=== PATIENT | female | born 1970 | race Hispanic/Latino ===

== ENCOUNTER 2019-09-21 12:07 | Inpatient (IN) | payer BC ==
[2019-09-21] MEDS ORDERED: Piperacillin/Tazobactam 4.5 GM VIAL ONE (12:56)
[2019-09-21 13:01] LABS: Hemoglobin 13.7 g/dL (12.0-16.0); Mean Corpuscular HGB CONC 33.6 g/dL (32.0-36.0); Mean Corpuscular Hemoglobin 31.7 pg (27.0-31.0); Mean Corpuscular Volume 94.3 fL (78.0-98.0); Mean Platelet Volume 9.7 fL (7.4-10.4); Platelet Count 214 thou/uL (130-400); RBC Distribution Width 12.4 % (11.5-14.5); Red Blood Cell (RBC) Count 4.33 mill/uL (4.20-5.40); White Blood Cell (WBC) Count 22.3 thou/uL (4.8-10.8)
[2019-09-21 13:14] LABS: Band 24 % (5-11); Lymphocytes 8 % (21-51); MDiff Complete? YES; Monocytes 1 % (0-10); Neutrophil 67 % (42-75); Platelet Morphology Comment Appears Adequate; RBC Morphology Normal
[2019-09-21 13:20] LABS: ALT (SGPT) 17 U/L (8-55); AST (SGOT) 14 U/L (5-34); Albumin 4.3 g/dL (3.5-5.0); Alkaline Phosphatase 100 U/L (40-110); Anion Gap 15 mmol/L (10-20); BUN (Urea Nitrogen) 14 mg/dL (7.0-18.7); Calc. Creatinine Clearance 0 mL/min (70-130); Calcium 9.4 mg/dL (7.8-10.44); Carbon Dioxide 24 mmol/L (22-29); Chloride 100 mmol/L (98-107); Estimated GFR-MDRD 70; Globulin 4.1 g/dL (2.4-3.5); Glucose 115 mg/dL (70-105); Lipase 10 U/L (8-78); Potassium 3.6 mmol/L (3.5-5.1); Protein, Total 8.4 g/dL (6.0-8.3); Sodium 135 mmol/L (136-145)
--- NOTE | 2019-09-21 13:42 | RAD ---
PORTABLE CHEST: Date: 09/21/2019 PROVIDED CLINICAL HISTORY: Abdominal pain. FINDINGS: Cardiac and mediastinal silhouette is within normal limits. No focal consolidation, pleural fluid, or pneumothorax apparent. IMPRESSION: No evidence for an acute cardiopulmonary process. POS: CARLOS
--- NOTE | 2019-09-21 13:46 | CT ---
CT ABDOMEN AND PELVIS: Date: 09/21/2019 PROVIDED CLINICAL HISTORY: Lower abdominal pain. FINDINGS: The visualized lung bases are free of significant opacity. The solid abdominal organs demonstrate a normal CT appearance. There is a prominently heterogeneous a ppearance to the uterus and both adnexa, with surrounding inflammatory fat stranding. There is a 2.7 cm fluid collection present within the pelvic cul-de-sac right of midline. There is a 1.9 cm fluid co llection immediately adjacent to the fundus of the uterus posteriorly left of midline. There is no bowel dilatation, additional inflammatory fat stranding, or free air apparent. The append ix appears unremarkable. The osseous structures demonstrate no concerning lytic or blastic lesions. IMPRESSION: Findings compatible with pelvic inflammatory disease with fluid collections in the pelvic cul-de-sac and left adnexal region that may reflect abscesses. These do not appear to be percutaneously accessib le. POS: CARLOS
[2019-09-21] MEDS ORDERED: Iopamidol-370 76% 500 ML 1 ML ONE (14:13)
[2019-09-21] MEDS ORDERED: Acetaminophen 500 MG TAB ONE (15:01)
[2019-09-21 15:07] LABS: Bacteria/HPF None Seen HPF (None Seen); Bilirubin Negative (Negative); Blood, Urine 1+ (Negative); Clarity Clear (Clear); Glucose, Urine (Dipstick) Normal (Negative); Leukocyte Negative Leu/uL (Negative); Nitrite Negative (Negative); Protein, Urine (Dipstick) 30 mg/dL (Neg-Trace); Squamous Epithelial 0-3 HPF (0-3); Urobilinogen Normal mg/dL (Less than 2); WBC/HPF 0-3 HPF (0-3)
[2019-09-21] MEDS ORDERED: Bisacodyl 5 MG TAB PO PRN (15:31)
[2019-09-21] MEDS ORDERED: HYDROcodone/Acetaminophen 5/325 mg Tablet PO PRN (15:31)
[2019-09-21] MEDS ORDERED: Ondansetron ODT 4 MG TAB PO PRN (15:31)
[2019-09-21] MEDS ORDERED: Senokot S 8.6-50 MG TAB PO PRN (15:31)
--- NOTE | 2019-09-21 15:34 | ULT ---
TRANSABDOMINAL AND TRANSVAGINAL PELVIC ULTRASOUND: 09/21/19 HISTORY: Pelvic pain. FINDINGS/IMPRESSION: The uterus measures 12.5 x 5.6 x 5.6 cm without focal mass or endometrial fluid. The endometrium waqas ures 4 mm in thickness. The ovaries are not visualized. There is a small amount of free fluid in the posterior cul-de-sac. Ex am is limited due to bowel gas. Please see CT abdomen/pelvis report. POS: JANE
[2019-09-21] MEDS: cefOXitin Sodium/Dextrose,Iso 2 GM in Premix Bag 1 BAG IVPB SCH (18:47)
[2019-09-21] MEDS: Sodium Chloride 0.9% 1,000 ML IV SCH (18:47)
--- NOTE | 2019-09-21 21:51 | HP ---
CHIEF COMPLAINT: PID. HISTORY OF PRESENT ILLNESS: The patient is a 49-year-old female, who presented to the emergency room after being seen at an outside clinic for 1-day history of pelvic and abdominal pain and fever. Upon arrival, the patient had a CT performed of the pelvis demonstrating some fat stranding around the uterus and adnexa and small fluid collections in the pelvic cul-de-sac. With concerns of PID as working diagnosis, [facility] was consulted for evaluation. The patient confirms with me that she has only had 1-day history of fever today and pelvic pain. She works at [employer] and has been working there every day. She is in a monogamous long-standing stable relationship and denies sexual contact with anybody else. She denies any sick contacts. Denies any travel and denies any contacts with others that had travelled to high-risk areas for the Reyez virus. The patient also denies fever and cough, headache, chest pain, shortness of breath. The patient has had some nausea and decreased appetite for the last few days. She denies vomiting, denies diarrhea, but also reports that she has not had a bowel movement in the last few days. She denies any new rashes, hip problems, knee problems, or muscle weakness. She denies discharge. The patient's last menstrual period began on Wednesday and was not unusual in any way and has since dissipated. The patient reports that she still having monthly regular predictable periods. She denies any history of sexually transmitted infections or pelvic infections. PAST MEDICAL HISTORY: Negative. PAST SURGICAL HISTORY: She has had a section. SOCIAL HISTORY: Denies drug, alcohol, or tobacco use. Works full-time outside the home. ALLERGIES: NO KNOWN DRUG ALLERGIES. OB HISTORY: She has three children, ranging from 13 to 20. CURRENT MEDICATIONS: None. Outside the emergency room, she has received a dose of Zosyn since presenting to the emergency room. PHYSICAL EXAMINATION: VITAL SIGNS: At the time of arrival, blood pressure 112/66, pulse of 123, respiratory rate of 22, temperature 102.8, saturating 97% on room air. At the time of my evaluation, blood pressure was 104/57, pulse of 100, respiratory rate of 20, temperature 101.8, pain of 4/10, saturating 96% on room air. GENERAL: She appears to be in no acute distress. She was flushed. She was alert, oriented, cooperative, and pleasant to interact with. HEENT: Head is normocephalic, atraumatic. LUNGS: Clear to auscultation bilaterally. HEART: Had a regular rate and rhythm. ABDOMEN: Gravid. She did have some tenderness in the lower pelvis with deep palpation, however, did not have any guarding or rebound. EXTREMITIES: Nontender, nonedematous. Vulva without masses, lesions, or erythema. Vagina on speculum exam had significant amount of purulent-looking discharge, very thin in nature. Cervix appeared to be normal and closed. Attempt to get VP3, GC and chlamydia, the cervix was difficult to enter with the collection brush. Bimanual exam, uterus was very tender to bimanual, more so than her adnexa. Bedside ultrasound was performed and the patient was noted to have a fluid collection in the posterior cul-de-sac that was primarily hypoechoic, but did appear to have some heterogeneous material, otherwise normal appearing uterus and ovaries. LABORATORY STUDIES: White count is 22.3, hemoglobin 13.7, hematocrit 40.8, and platelets of 214,000. She has 24% bands, though does not have a left shift at 67%. Sodium 135, potassium 3.6, creatinine 0.86, glucose of 115, lactic acid of 1.3. LFTs, AST of 14, ALT of 17, lipase of 10. Urine shows a very high specific gravity of 1.058 with 30 of protein, 20 of ketones, 1+ blood, negative nitrite, negative leukocyte esterase, negative white blood cells, negative squamous cells, no bacteria. Her VP3 is positive for bacterial vaginosis. No evidence of yeast or Trichomonas. GC and chlamydia were collected at the time of my evaluation and findings are still pending. ASSESSMENT AND PLAN: The patient is a 49-year-old female with what appears to be PID. She does not have any significant findings confirming any tubo-ovarian abscesses at this time, though she does appear to be having a fluid collection developing the posterior cul-de-sac, but it is primarily hypoechoic, likely related to inflammatory changes. The patient has been given a dose of Zosyn at this time. We will be continuing her IV antibiotic treatment given her fever and will continue with cefoxitin 2 g every 6 hours and doxycycline p.o. b.i.d. as the patient is tolerating some oral and is asking for a diet. Her VP3 findings should be treated with doxycycline and can continue treatment upon discharge as we anticipate a combination of doxycycline and Flagyl. The patient will be admitted for the next few days, anticipating quick resolution of her febrile state. Once this is stable, she can be discharged home on oral antibiotics. Concerns for Reyez virus in this patient are extremely low given that she has had no respiratory symptoms, no GI symptoms of significance, no contacts, no travel history and a likely source for her fever, confirmed by physical exam and CT scan. Job ID: [id number]
[2019-09-21] MEDS: Doxycycline 100 MG CAP PO SCH (21:55)
[2019-09-21] MEDS: Famotidine 20 MG TAB PO SCH (21:55)
[2019-09-22] MEDS: Acetaminophen 325 MG TAB PO PRN ×3 (01:08→20:18)
[2019-09-22] MEDS: Sodium Chloride 0.9% 1,000 ML IV SCH ×3 (01:09→18:56)
[2019-09-22] MEDS: cefOXitin Sodium/Dextrose,Iso 2 GM in Premix Bag 1 BAG IVPB SCH ×4 (01:09→18:56)
--- NOTE | 2019-09-22 09:03 | PRG ---
DATE OF SERVICE: 09/22/2019 SUBJECTIVE: The patient was admitted yesterday for concerns of PID, was placed on cefoxitin and doxycycline. The patient overnight had a temperature of 103.1. This morning, the patient reports that she has since subjectively feeling better as the pain is less than it has been. She denies nausea or vomiting. OBJECTIVE: VITAL SIGNS: This morning, temperature 98.6, pulse of 88, respiratory rate of 20, saturating 98% on room air and blood pressure 110/59. ASSESSMENT AND PLAN: The patient is a 49-year-old female with evidence of PID, on cefoxitin and doxycycline. Subjectively, she seems to show some signs of improvement, though she continues to be febrile as of last night around 1. We will continue IV antibiotics for the foreseeable future and re-evaluate as necessary. Job ID: [id number]
[2019-09-22] MEDS: Famotidine 20 MG TAB PO SCH ×2 (09:10→20:18)
[2019-09-22] MEDS: Doxycycline 100 MG CAP PO SCH ×2 (09:10→20:17)
[2019-09-22 21:22] LABS: Chlamydia by PCR Not Detected (NotDetected); GC by PCR Not Detected (NotDetected)
[2019-09-23] MEDS: cefOXitin Sodium/Dextrose,Iso 2 GM in Premix Bag 1 BAG IVPB SCH ×4 (00:15→16:55)
[2019-09-23] MEDS: Sodium Chloride 0.9% 1,000 ML IV SCH ×4 (00:19→23:07)
--- NOTE | 2019-09-23 07:26 | PDOC.BPN ---
- Brief Progress Note S: Feeling well this morning, no complaints. Denies significant pain, or other concerns. Tolerating PO, ambulating without difficulty. O: Tm: 101.2 (09/21 @ 2014) Gen - AAO, NAD Abd - soft, NTTP Ext - no edema CBC pending A/P: 49 y/o F admitted with PID on Cefoxitin and doxycycline, clinically improving. Although not afebrile >24 hours, trend is improving. Continue current regimen and continue to monitor.
[2019-09-23] MEDS: Famotidine 20 MG TAB PO SCH ×2 (08:39→21:39)
[2019-09-23] MEDS: Doxycycline 100 MG CAP PO SCH ×2 (08:39→21:39)
[2019-09-23] MEDS: metroNIDAZOLE 500 MG TAB PO SCH ×2 (08:39→21:39)
[2019-09-23 10:26] LABS: #Eosinphils 0.4 thou/uL (0.0-0.7); #Lymphocytes 1.1 thou/uL (1.20-3.40); #Monocytes 0.9 thou/uL (0.11-0.59); #Neutrophils 13.5 thou/uL (1.40-6.50); %Basophils 0.3 % (0.0-1.0); %Eosinophils 2.6 % (0.0-10.0); %Lymphocytes 6.7 % (21.0-51.0); %Monocytes 5.7 % (0.0-10.0); %Neutrophils 84.8 % (42.0-75.0); Hemoglobin 11.8 g/dL (12.0-16.0); Mean Corpuscular HGB CONC 33.4 g/dL (32.0-36.0); Mean Corpuscular Hemoglobin 31.5 pg (27.0-31.0); Mean Corpuscular Volume 94.2 fL (78.0-98.0); Mean Platelet Volume 9.6 fL (7.4-10.4); Platelet Count 219 thou/uL (130-400); RBC Distribution Width 12.7 % (11.5-14.5); Red Blood Cell (RBC) Count 3.75 mill/uL (4.20-5.40); White Blood Cell (WBC) Count 15.9 thou/uL (4.8-10.8)
[2019-09-23] MEDS: Acetaminophen 325 MG TAB PO PRN (12:15)
--- NOTE | 2019-09-23 13:02 | PDOC.EVN ---
Event Note - Event Note Event Note: Temp 100.4 at noon...zak added this am
--- NOTE | 2019-09-23 13:02 | PDOC.EVN ---
Event Note - Event Note Event Note: Lab check: WBC down from 22 to 15. Will recheck in AM
--- NOTE | 2019-09-23 22:46 | PDOC.EVN ---
Event Note - Event Note Event Note: Patient seen at bedside She states feels better Last temp of 100.4 at noon today ABD soft, NT Meds: cefoxitin and doxy with flagyl Resolving PID Continue in-house until 24 hrs afebrile then home with doxy and flagyl
[2019-09-24] MEDS: cefOXitin Sodium/Dextrose,Iso 2 GM in Premix Bag 1 BAG IVPB SCH ×2 (00:32→05:47)
--- NOTE | 2019-09-24 06:20 | PDOC.HOSPP ---
- Subjective Encounter Date: 09/24/19 Encounter Time: 06:00 Subjective: States feels much better, doing well, jefe po. pelvic pain has resolved - Objective Vital Signs & Weight: Vital Signs (12 hours) Temp Pulse Resp BP Pulse Ox 09/24/19 05:48 98.7 F 09/24/19 00:35 99.2 F 09/23/19 19:38 99.2 F 83 16 122/68 100 Weight Weight 163 lb 2.273 oz I&O: 09/22/19 09/23/19 09/24/19 06:59 06:59 06:59 Intake Total 1627 9165 Balance 1629 0664 Result Diagrams: 09/23/19 09:54 09/21/19 12:43 Additional Labs: CBC ordered this AM, pending Hospitalist ROS - Review of Systems All other systems reviewed; all pertinent +/- noted in HPI/Subj - Medication Medications: Active Medications Generic Name Dose Route Start Last Admin Trade Name Freq PRN Reason Stop Dose Admin Acetaminophen 650 mg 09/21/19 15:31 09/23/19 12:15 Tylenol PO 650 mg Q4H PRN Administration Headache/Fever/Mild Pain (1-3) Doxycycline Hyclate 100 mg 09/21/19 21:00 09/23/19 21:39 Vibramycin PO 100 mg BID POLO Administration Famotidine 20 mg 09/21/19 21:00 09/23/19 21:39 Pepcid PO 20 mg BID POLO Administration Cefoxitin Sodium/Dextrose 2 gm 50 mls @ 100 mls/hr 09/21/19 18:00 09/24/19 05 :47 / Device IVPB 50 mls Q6HR POLO Administration Sodium Chloride 1,000 mls @ 125 mls/hr 09/21/19 15:45 09/23/19 23:07 Normal Saline 0.9% IV 1,000 mls .Q8H POLO Administration Metronidazole 500 mg 09/23/19 09:00 09/23/19 21:39 Flagyl PO 500 mg BID POLO Administration - Exam Gastrointestinal: soft, non-tender, non-distended Skin: normal turgor, no lesions Neurological: no focal deficits Musculoskeletal: normal tone Psychiatric: normal affect Hosp A/P (1) Pelvic infection in female Code(s): N73.9 - FEMALE PELVIC INFLAMMATORY DISEASE, UNSPECIFIED Status: Acute - Plan Doing well. Will be 24 hrs afebrile at 12 noon. If stayes afebrile, home at 12 noon. RX sent to pharmacy for motrin and doxy. Follow up with any STRATEGIC ANALYST provider or FM in 2 weeks
--- NOTE | 2019-09-24 06:22 | PDISCHARGE ---
Discharge - Disposition Disposition: HOME - Ambulatory Orders Prescriptions: Doxycycline [Vibramycin] 100 mg PO Q12HR #14 cap metroNIDAZOLE [Flagyl] 500 mg PO BID #14 tab - Patient Instructions - Referrals and PCP Follow-Up Referrals and PCP Follow-Up: PROVIDER,NO PCP [Primary Care Provider] - - Activity Instructions Activity:: Activity as Tolerated - Nourishment Instructions Nourishment:: No Restrictions - IV Therapy Instructions IV Therapy:: Not Applicable
[2019-09-24] MEDS: metroNIDAZOLE 500 MG TAB PO SCH (08:02)
[2019-09-24] MEDS: Famotidine 20 MG TAB PO SCH (08:02)
[2019-09-24] MEDS: Doxycycline 100 MG CAP PO SCH (08:02)
[2019-09-24] MEDS: Sodium Chloride 0.9% 1,000 ML IV SCH (08:04)
[2019-09-24 08:14] LABS: #Basophils 0.1 thou/uL (0.0-0.2); #Eosinphils 0.3 thou/uL (0.0-0.7); #Lymphocytes 1.3 thou/uL (1.20-3.40); #Neutrophils 9.8 thou/uL (1.40-6.50); %Basophils 0.4 % (0.0-1.0); %Eosinophils 2.3 % (0.0-10.0); %Lymphocytes 10.8 % (21.0-51.0); %Monocytes 7.9 % (0.0-10.0); %Neutrophils 78.6 % (42.0-75.0); Hemoglobin 11.4 g/dL (12.0-16.0); Mean Corpuscular HGB CONC 32.8 g/dL (32.0-36.0); Mean Corpuscular Hemoglobin 30.8 pg (27.0-31.0); Mean Corpuscular Volume 93.8 fL (78.0-98.0); Mean Platelet Volume 9.2 fL (7.4-10.4); Platelet Count 234 thou/uL (130-400); RBC Distribution Width 12.7 % (11.5-14.5); Red Blood Cell (RBC) Count 3.72 mill/uL (4.20-5.40); White Blood Cell (WBC) Count 12.4 thou/uL (4.8-10.8)
[2019-09-24 12:14] VITALS: BP 122/64
[2019-09-24 12:22] VITALS: TEMP 99.4
--- NOTE | 2019-09-24 13:38 | DIS ---
DATE OF ADMISSION: 09/21/2019 DATE OF DISCHARGE: 09/24/2019 ADMITTING PHYSICIAN: Davide Lloyd MD DISCHARGING PHYSICIAN: Benjamin Sepulveda MD. HOSPITAL COURSE: In brief, this patient was admitted as a 49-year-old female with concern for acute pelvic infection/PID. For full details, please see the H and P by Dr. Lloyd on the day of admission. She was admitted for IV antibiotics. During her hospital stay, laboratory data revealed an initial white blood cell count of 22, which was improved down to 15 on 09/22 with a repeat CBC pending on 09/24/2019. Gonorrhea and chlamydia PCR were obtained and were both negative. Cultures were also obtained, which revealed no blood culture growth at 48 hours. Urine culture was also non-significant. Vaginitis panel was positive only for bacterial vaginosis or BV. She was placed on cefoxitin and doxy and I began Flagyl on September 22 (oral medication). I evaluated the patient on the evening of 09/22 and on the morning of 09/23. As she was clinically improved with resolution of her pain, I made the plan to discharge her home at noon on 09/23, which would be 24 hours afebrile. Discharge medications included Motrin and doxy for oral use send out to the pharmacy. We will check the morning CBC to trend improvement. She will have a followup with any INVENTORY ASSISTANT provider in 2 weeks. Job ID: [id number]
--- NOTE | 2019-09-26 04:55 | PQF ---
KUSHAL SHERMAN HECTOR [id number] [facility] [place] [id number] CLINICAL DOCUMENTATION CLARIFICATION FORM: POST DISCHARGE Addendum to original discharge summary date: ____ Late entry note date: 09/27/2019 DATE: 09/26/2019 ATTN: Benjamin Julian Please exercise your independent, professional judgment in responding to the clarification form. Clinical indicators are provided on the bottom of this form for your review Please check appropriate box(s) to clarify if the following diagnosis has been ruled in or ruled out: Sepsis [ ] Ruled in diagnosis [ ] Continue to treat x Resolved [ ] Ruled out diagnosis [ ] Cannot rule out diagnosis [ ] Other diagnosis [ ] Unable to determine NOTE: I was not present ir involved with the patients admission. I evaluated her as I cane on duty after her initial admission. There was not a concern for possible pelvic abscess and she improved with antibiotic therapy per CDC guidelines. Her lactate, as I recall, was not significantly elevated. For continuity of documentation, please document condition throughout progress notes and discharge summary. Thank You. CLINICAL INDICATORS - SIGNS / SYMPTOMS / LABS Laboratory 09/20 WBC 22.3, Neutrophils 84.8, band 24, Lactic acid 1.3 Vital signs 09/20 BP 112/66, Pulse 123, Resp 24, temp 102.8 ED notes p2 SIRS scoring: meets did meets at least 2 criteria ED notes p9 Sepsis, Intraabdominal abscess, PID Discharge summary p1 09/23 Concern for Acute pelvic Infection/PID Discharge summary p1 09/23 Vaginitis panel was positive only for bacterial vaginosis or BV Collected 09/20 blood culture:No growth at 48 hrs RISK FACTORS H& P p1 09/20 - 49 years-old Female H& P p1 09/20 hx of CS TREATMENTS AUG 08 IV Zosyn 4.5gm AUG 08 IVF NS 1L Aug 08 IV Cefoxitin 2gm MAR 09/20 - Vibramycin 100mg oral Urine Culture 09/20 Blood Culture 09/20 Vagitis Screen 09/20 (This form is maintained as a part of the permanent medical record) 2014 [employer]. All Rights Reserved [email or web address]
== END 2019-09-24 12:50 | disposition home or self-care (01) | DRG 872 ==
LOC: ERS 12:07 → 3SE 15:31
PROVIDERS: ADMIT Obstetrics & Gynecology; ATTEND Obstetrics & Gynecology
DX: A41.9 Sepsis, unspecified organism (principal); N73.0 Acute parametritis and pelvic cellulitis
CPT/HCPCS: 36415; 71045; 74177; 76856; 80053; 81003; 81015; 83605; 83690; 85025; 87040; 87086; 87480; 87491; 87510; 87591; 87660; 93005; 96361; 96365; J0694; J2543; Q9967